=== PATIENT | female | born 1960 | race Caucasian/White ===

== ENCOUNTER 2017-02-22 16:08 | Inpatient (IN) | payer MEDICAID ==
[~2017-02-22] VITALS: Ht 157.5 cm; Wt 65.0 kg
[2017-02-22] MEDS ORDERED: SODIUM CHLORIDE 0.9% 1,000ML IVBOLUS ONE (16:30)
[2017-02-22] MEDS ORDERED: SODIUM CHLORIDE FLUSH 10ML SYR IVF ONE (16:30)
[2017-02-22 17:06] LABS: HEMATOCRIT 40.1 % (34.6-47.8); HEMOGLOBIN 13.2 g/dL (11.7-16.4); WHITE BLOOD COUNT 8.8 x10^3/uL (3.4-10)
[2017-02-22 17:13] LABS: BLOOD UREA NITROGEN 13 mg/dL (7-18)
[2017-02-22] MEDS ORDERED: SODIUM CHLORIDE 0.9% 1,000 ML IV ONE (19:47)
[2017-02-22] MEDS ORDERED: ONDANSETRON 2MG/ML, 2ML ONE (19:55)
[2017-02-22] MEDS ORDERED: MORPHINE SULFATE 4 MG/ML, 1ML ONE (19:55)
[2017-02-22] MEDS ORDERED: MORPHINE SULFATE 4 MG/ML, 1ML IVPush PRN (20:00)
[2017-02-22] MEDS ORDERED: CEFTAROLINE 600 MG in SODIUM CHLORIDE 0.9% 100 ML IV ONE (20:00)
[2017-02-22] MEDS ORDERED: ONDANSETRON 2MG/ML, 2ML IVPush PRN ×2 (20:00→20:30)
[2017-02-22] MEDS ORDERED: ZOLPIDEM 5MG TABLET PO PRN (20:30)
[2017-02-22] MEDS ORDERED: POLYETHYLENE GLYCOL 17 GM PACKET PO PRN (20:30)
[2017-02-22] MEDS ORDERED: DOCUSATE 100 MG CAPSULE PO PRN (20:30)
[2017-02-22] MEDS ORDERED: ACETAMINOPHEN 325 MG TABLET PO PRN (20:30)
[2017-02-22] MEDS ORDERED: FUROSEMIDE 40 MG/4 ML IV ONE (20:30)
[2017-02-22] MEDS ORDERED: POTASSIUM CHLORIDE 20 MEQ TAB.ER.PRT PO ONE (20:30)
[2017-02-22] MEDS ORDERED: BISACODYL 10 MG SUPP PR PRN (20:30)
[2017-02-22] MEDS ORDERED: HYDROcodone/APAP 5/325 TABLET PO PRN (20:30)
[2017-02-22 21:27] VITALS: BP 122/77
[2017-02-22] MEDS: NICOTINE 21 MG/24 HR PATCH.TD24 TD SCH (22:33)
[2017-02-22] MEDS: ENOXAPARIN 40 MG/0.4 ML SQ SCH (22:34)
[2017-02-22] MEDS ORDERED: ASPI500T13 PO (22:51)
[2017-02-23] MEDS: AMPICILLIN/SULBACTAM 3 GM in SODIUM CHLORIDE 0.9% 100 ML IV SCH ×4 (02:38→21:17)
[2017-02-23 02:58] VITALS: BP 93/57
[2017-02-23 05:34] LABS: HEMATOCRIT 39.3 % (34.6-47.8); WHITE BLOOD COUNT 7.4 x10^3/uL (3.4-10)
[2017-02-23 05:43] LABS: BLOOD UREA NITROGEN 13 mg/dL (7-18)
[2017-02-23 05:48] LABS: ASPARTATE AMINO TRANSFERASE 14 U/L (15-37)
[2017-02-23 07:18] VITALS: BP 106/68
[2017-02-23] MEDS: POTASSIUM CHLORIDE 20 MEQ TAB.ER.PRT PO SCH (08:07)
[2017-02-23] MEDS: FUROSEMIDE 40 MG/4 ML IV SCH (08:07)
[2017-02-23 13:32] VITALS: BP 102/67
[2017-02-23 19:41] VITALS: BP 106/72
[2017-02-23] MEDS: NICOTINE 21 MG/24 HR PATCH.TD24 TD SCH (21:17)
[2017-02-23] MEDS: ENOXAPARIN 40 MG/0.4 ML SQ SCH (21:17)
[2017-02-24 00:50] VITALS: BP 97/55
[2017-02-24] MEDS: AMPICILLIN/SULBACTAM 3 GM in SODIUM CHLORIDE 0.9% 100 ML IV SCH ×4 (04:00→21:10)
[2017-02-24 08:15] VITALS: BP 101/65
[2017-02-24] MEDS: POTASSIUM CHLORIDE 20 MEQ TAB.ER.PRT PO SCH (08:52)
[2017-02-24] MEDS: FUROSEMIDE 40 MG/4 ML IV SCH (08:52)
[2017-02-24 12:48] VITALS: BP 106/69
[2017-02-24 19:22] VITALS: BP 105/62
[2017-02-24] MEDS: NICOTINE 21 MG/24 HR PATCH.TD24 TD SCH (20:54)
[2017-02-24] MEDS: ENOXAPARIN 40 MG/0.4 ML SQ SCH (20:55)
[2017-02-25 00:56] VITALS: BP 113/71
[2017-02-25] MEDS: AMPICILLIN/SULBACTAM 3 GM in SODIUM CHLORIDE 0.9% 100 ML IV SCH ×2 (04:06→10:00)
[2017-02-25] MEDS: POTASSIUM CHLORIDE 20 MEQ TAB.ER.PRT PO SCH (07:38)
[2017-02-25 08:22] VITALS: BP 108/71
[2017-02-25] MEDS ORDERED: FUROSEMIDE 40 MG/4 ML IV SCH (09:00)
[2017-02-25 09:31] LABS: BLOOD UREA NITROGEN 12 mg/dL (7-18)
[2017-02-25 09:36] LABS: HEMATOCRIT 47.4 % (34.6-47.8); WHITE BLOOD COUNT 5.9 x10^3/uL (3.4-10)
[2017-02-25] MEDS ORDERED: NICO1PAT5 TD (09:40)
[2017-02-25] MEDS ORDERED: AMOX1TAB64 PO (09:40)
== END 2017-02-25 11:30 | disposition home or self-care (01) | DRG 603 ==
LOC: ED 19:45 → EDIP 19:47 → ED 20:00 → 4EST 20:53 → DCLOUNGE 02-25 11:23
DX: L03.115 Cellulitis of right lower limb (principal); E44.1 Mild protein-calorie malnutrition; F17.210 Nicotine dependence, cigarettes, uncomplicated; Z82.49 Family history of ischemic heart disease and other diseases of the circulatory system; Z85.41 Personal history of malignant neoplasm of cervix uteri; Z90.710 Acquired absence of both cervix and uterus; Z68.26 Body mass index [BMI] 26.0-26.9, adult
CPT/HCPCS: 36415; 80048; 80053; 82040; 83605; 83735; 84145; 85025; 87040; 93922; 96365; 96366; 96375; J0295; J0712; J1650; J1940; J2405; J7030